=== PATIENT | male | born 1935 | race Caucasian/White ===

== ENCOUNTER 2020-10-18 22:57 | Inpatient (IN) | payer MEDICARE, OTHER ==
[~2020-10-18] VITALS: Ht 172.7 cm; Wt 81.6 kg
--- NOTE | 2020-10-18 23:30 | NUR ---
Patient BIB [facility] from home for c/o respiratory failure. According to EMS patient oxygen saturation was in the 80s when they arrived, and when placed on O2 15L via NC patient patients O2 saturation went to 89%. Patient appears in respiratory distress with use of accessory muscles, and has labored/dyspnea with exertion
[2020-10-18 23:44] LABS: ABG BASE EXCESS 2.9 mmol/L; ABG HCO3 25.4 mmol/L; ABG PH 7.505 (7.350-7.450); ABG SITE RIGHT RADIAL; ABG TOTAL HEMOGLOBIN 14.9 G/dL (13.5-18.0); COHb 1.7 % (0.5-1.5); MetHb 0.2 % (0.0-1.5); O2Hb 95.4 % (94.0-97.0); VENT MODE HVNI
[2020-10-18 23:46] LABS: BASOPHILS % (AUTO) 0.2 % (0.0-2.0); HEMOGLOBIN 14.7 g/dL (12.5-16.3); LYMPHOCYTES # (AUTO) 0.4 K/uL (20.0-40.0); LYMPHOCYTES % (AUTO) 11.2 % (20.5-51.5); MEAN CORPUSCULAR HEMOGLOBIN 29.7 uug (23.8-33.4); MEAN CORPUSCULAR HGB CONC 34 g/dL (32.5-36.3); MEAN CORPUSCULAR VOLUME 87.2 fL (73.0-96.2); MONOCYTES # (AUTO) 0.3 K/uL (2.0-10.0); MONOCYTES % (AUTO) 8.1 % (0.0-11.0); NEUTROPHILS % (AUTO) 80.5 % (38.5-71.5); PLATELET COUNT (AUTO) 148 K/uL (152-348); RED BLOOD CELL COUNT(AUTO) 4.93 MIL/uL (4.06-5.63); WHITE BLOOD COUNT (AUTO) 3.8 K/uL (3.6-10.2)
[2020-10-18 23:51] LABS: CARBON DIOXIDE 30 mmol/L (21-32); CHLORIDE 101 mmol/L (98-107); CREATININE 1.5 mg/dL (0.6-1.3); GLUCOSE 151 mg/dL (74-106); POTASSIUM 3.5 mmol/L (3.5-5.1); UREA NITROGEN, BLOOD 21 mg/dL (7-18)
[2020-10-19] MEDS ORDERED: TAMS-3 PO (00:24)
[2020-10-19 00:30] LABS: ALANINE AMINOTRANSFERASE 87 U/L (16-63); ALKALINE PHOSPHATASE 275 U/L (50-136); ASPARTATE AMINOTRANSFERASE 129 U/L (15-37); BILIRUBIN,TOTAL 1.1 mg/dL (0.2-1.0); FERRITIN 1490 ng/mL (26-388); LACTATE DEHYDROGENASE 576 U/L (85-227)
[2020-10-19] MEDS ORDERED: AZITHROMYCIN IV 500 MG in IV DEXTROSE 5% 250 ML IV ONE (00:30)
[2020-10-19] MEDS ORDERED: CEFTRIAXONE 1 G in IV DEXTROSE 5% 50 ML IV ONE (00:30)
[2020-10-19] MEDS ORDERED: FENO134C PO (00:34)
[2020-10-19] MEDS ORDERED: PIOG15TA8 PO (00:34)
[2020-10-19] MEDS ORDERED: DEXAMETHASONE SOD PHOSPHATE 4 MG INJ IV ONE (00:45)
[2020-10-19] MEDS ORDERED: AZITHROMYCIN 500 MG VIAL IV ONE (00:48)
[2020-10-19] MEDS ORDERED: DEXAMETHASONE SOD PHOSPHATE 10 MG INJ ONE ×2 (00:49→08:02)
[2020-10-19] MEDS ORDERED: CEFTRIAXONE 1 G VIAL ONE (00:49)
[2020-10-19] MEDS ORDERED: AZITHROMYCIN IV 500 MG in IV DEXTROSE 5% 250 ML IV SCH (02:45)
[2020-10-19] MEDS ORDERED: ALBUTEROL SULFATE 8 GM HFA.AER.AD IH PRN (02:45)
[2020-10-19] MEDS ORDERED: ONDANSETRON 4 MG/2 ML VIAL IV PRN (02:45)
[2020-10-19] MEDS ORDERED: CEFTRIAXONE 1 G in IV DEXTROSE 5% 50 ML IV SCH (02:45)
[2020-10-19] MEDS ORDERED: ACETAMINOPHEN 650 MG SUPP.RECT RC PRN (02:45)
[2020-10-19] MEDS ORDERED: ALBUTEROL SULFATE 2.5 MG/3 ML NEBU NEB ONE (03:00)
[2020-10-19] MEDS ORDERED: IPRATROPIUM BROMIDE 0.5 MG/2.5 ML NEBU NEB ONE (03:00)
[2020-10-19] MEDS ORDERED: IPRATROPIUM BROMIDE 0.5 MG/2.5 ML NEBU ONE (03:04)
[2020-10-19] MEDS ORDERED: ALBUTEROL SULFATE 2.5 MG/3 ML NEBU ONE (03:04)
[2020-10-19 03:53] LABS: CREATINE KINASE, TOTAL 250 U/L (39-308)
[2020-10-19] MEDS ORDERED: ENOXAPARIN SODIUM 40 MG/0.4 ML DISP.SYRIN SQ ONE (04:04)
--- NOTE | 2020-10-19 08:00 | NUR ---
Recieved patient from [facility] 3, noted be on Hi-gaudencio/vapotherm 02 at 40 Liters, with 100% fi02. Pt saturating at 93%. Pending floor admission
[2020-10-19] MEDS: DEXAMETHASONE SOD PHOSPHATE 4 MG INJ IV SCH (08:03)
[2020-10-19 10:12] LABS: BASOPHILS % (AUTO) 0.1 % (0.0-2.0); HEMATOCRIT 41.3 % (36.7-47.1); HEMOGLOBIN 14.1 g/dL (12.5-16.3); LYMPHOCYTES # (AUTO) 0.4 K/uL (20.0-40.0); LYMPHOCYTES % (AUTO) 10.3 % (20.5-51.5); MEAN CORPUSCULAR HGB CONC 34 g/dL (32.5-36.3); MEAN CORPUSCULAR VOLUME 87.5 fL (73.0-96.2); MONOCYTES # (AUTO) 0.2 K/uL (2.0-10.0); MONOCYTES % (AUTO) 4.6 % (0.0-11.0); NEUTROPHILS # (AUTO) 3.2 K/uL (1.8-8.9); PLATELET COUNT (AUTO) 159 K/uL (152-348); RED BLOOD CELL COUNT(AUTO) 4.71 MIL/uL (4.06-5.63); WHITE BLOOD COUNT (AUTO) 3.8 K/uL (3.6-10.2)
[2020-10-19 11:02] LABS: CREATININE 1.2 mg/dL (0.6-1.3); POTASSIUM 3.8 mmol/L (3.5-5.1)
[2020-10-19 11:18] LABS: BILIRUBIN,TOTAL 0.8 mg/dL (0.2-1.0); MAGNESIUM 2.2 mg/dL (1.8-2.4)
--- NOTE | 2020-10-19 12:00 | NUR ---
Pt remains on vapotherm, continuously reminded to keep on vapotherm cannula, pt removes it.
--- NOTE | 2020-10-19 16:00 | NUR ---
Patient remains in [facility]. Cont' on hi-flow 02 at 40L/min at 100% fi02. Pending CCU admission. Will cont' to monitor.
[2020-10-19] MEDS ORDERED: REMDESIVIR (CHARGED) 200 MG in IV NORMAL SALINE 210 ML IV ONE (19:00)
--- NOTE | 2020-10-19 19:13 | NUR ---
SBAR report given to Renny CLEMENT
--- NOTE | 2020-10-19 19:35 | NUR ---
Patient is awkae, alert on high flow 40L sating at 92%, will monitor.
--- NOTE | 2020-10-19 20:03 | NUR ---
Dr. Abbott at bedside.
--- NOTE | 2020-10-19 23:05 | NUR ---
Called lab regarding respiratory pathogen panel, stated we don't do that test here.
--- NOTE | 2020-10-19 23:12 | NUR ---
urine and flu swab collected.
[2020-10-19] MEDS ORDERED: CEFTRIAXONE /D5W 50ML IVPB **ER PYXIS IV ONE (23:18)
[2020-10-19] MEDS ORDERED: AZITHROMYCIN 500MG/ D5W 250ML IVPB **ER PYXIS ONLY IV ONE (23:18)
[2020-10-19] MEDS: CEFTRIAXONE 1 G in IV DEXTROSE 5% 50 ML IV SCH (23:22)
[2020-10-19 23:45] LABS: *BILIRUBIN,URIN NEGATIVE (NEGATIVE); *BLOOD, URINE 2+ (NEGATIVE); *COLOR,URINE YELLOW (YELLOW); *KETONES,URINE NEGATIVE (NEGATIVE); *UROBILINOGEN,URINE 0.2 E.U./dl (NORMAL); LEUKOCYTE ESTERASE ,URINE NEGATIVE (NEGATIVE); NITRITE, URINE POSITIVE (NEGATIVE); PH,URINE 5.5 (5.0-8.0); UGLUCOSE NEGATIVE (NEGATIVE)
[2020-10-19 23:50] LABS: *CLARITY,URINE HAZY (CLEAR)
[2020-10-20] MEDS: AZITHROMYCIN IV 500 MG in IV DEXTROSE 5% 250 ML IV SCH ×2 (00:12→23:00)
--- NOTE | 2020-10-20 01:00 | NUR ---
Informed Yaa Hancock CARDIOLOGY PHYSICIAN that O2 sat 88% on high flow, per Yaa ok as long as O2 sat is above 85%
[2020-10-20 01:14] LABS: BACTERIA,URINE MODERATE /HPF (NONE SEEN); SQUAMOUS EPITHELIAL CELL,UR FEW /HPF (NONE SEEN); WBC,URINE 0-3 /HPF (0-3); YEAST,URINE MANY /HPF (NONE SEEN)
--- NOTE | 2020-10-20 04:20 | NUR ---
Observed patient removing oxygen, reminded to keep oxygen on. will monitor.
--- NOTE | 2020-10-20 07:05 | NUR ---
Report given to URBANO Pierce.
--- NOTE | 2020-10-20 07:20 | NUR ---
recieved report from night RN, patients vital signs stable
--- NOTE | 2020-10-20 08:09 | NUR ---
patient removed high fow nasal cannula, oxygen dropped to 50%, patient moved back up in bed and oxygen placed back on, informed
--- NOTE | 2020-10-20 08:14 | NUR ---
oxygen increasing now at 77%, watching patient closely and informed MD
[2020-10-20] MEDS ORDERED: DEXAMETHASONE SOD PHOSPHATE 10 MG INJ ONE (08:40)
[2020-10-20] MEDS ORDERED: ENOXAPARIN SODIUM 60 MG/0.6 ML DISP.SYRIN SQ ONE (08:41)
[2020-10-20] MEDS: DEXAMETHASONE SOD PHOSPHATE 4 MG INJ IV SCH (08:42)
--- NOTE | 2020-10-20 08:52 | NUR ---
pt continues to get up in bed and take his oxygen off
[2020-10-20] MEDS: ENOXAPARIN SODIUM 40 MG/0.4 ML DISP.SYRIN SQ SCH (09:03)
[2020-10-20 10:10] LABS: BASOPHILS % (AUTO) 0.1 % (0.0-2.0); HEMATOCRIT 40.8 % (36.7-47.1); HEMOGLOBIN 13.8 g/dL (12.5-16.3); LYMPHOCYTES # (AUTO) 0.3 K/uL (20.0-40.0); LYMPHOCYTES % (AUTO) 4.6 % (20.5-51.5); MEAN CORPUSCULAR HEMOGLOBIN 29.8 uug (23.8-33.4); MEAN CORPUSCULAR HGB CONC 34 g/dL (32.5-36.3); MONOCYTES # (AUTO) 0.7 K/uL (2.0-10.0); NEUTROPHILS # (AUTO) 5.3 K/uL (1.8-8.9); NEUTROPHILS % (AUTO) 84.3 % (38.5-71.5); PLATELET COUNT (AUTO) 190 K/uL (152-348); RED BLOOD CELL COUNT(AUTO) 4.63 MIL/uL (4.06-5.63); WHITE BLOOD COUNT (AUTO) 6.3 K/uL (3.6-10.2)
[2020-10-20 10:45] LABS: BILIRUBIN,DIRECT 0.4 mg/dL (0.0-0.2); BILIRUBIN,TOTAL 0.6 mg/dL (0.2-1.0); CREATININE 1.2 mg/dL (0.6-1.3); TOTAL PROTEIN, SERUM 6.6 g/dL (6.4-8.2)
--- NOTE | 2020-10-20 10:45 | NUR ---
RT PT AT THIS TIME NOT TOLERATING VAPOTHERM 40LP 100% AND NRB 15LPM. PER MD ORDER PLACE PT ON BIPAP. PT AT THIS TIME WAS PLACE ON BIPAP SETTING OF IPAP 18 EPAP 8 RATE 18 FIO2 100%. PT SETTING REPEATED BACK TO ER MD AND WAS APPROVED OF SETTINGS. PT AT THIS TIME TOLERATING BIPAP AND MAINTAINING SPO2 >95%. MASK SECURED AND INTACT WITH MEPILEX WITH SMALL LEAK OF 11. ALARMS ON AND AUDIBLE RN AWARE WILL CONTINUE TO MONITOR PT.AMBU BAG AT BED SIDE. PT PENDING ADMISSION.
[2020-10-20] MEDS ORDERED: LORAZEPAM 2 MG/1 ML VIAL IV ONE (11:15)
--- NOTE | 2020-10-20 11:51 | NUR ---
family at bedside
--- NOTE | 2020-10-20 11:57 | NUR ---
[facility] states family wishes to keep patient a full code. [phone]
[2020-10-20] MEDS: REMDESIVIR (CHARGED)100 MG in IV NORMAL SALINE 250 ML IV SCH (18:03)
--- NOTE | 2020-10-20 19:15 | NUR ---
RECEIVED PATIENT AWAKE , UNCOOPERATIVE ON BIPAP 18 AT 100 FIO2% . JONES INTACT , IV D5 1/2 NS AT 75 RUNNING , JONES INTACT , NO FEVER NOTED
[2020-10-20 19:30] VITALS: BP 182/97
[2020-10-20 20:00] VITALS: BP 172/81
--- NOTE | 2020-10-20 20:30 | NUR ---
SPOKE TO GRAND DAUGHTER CIARAN , WHO IS SPOKE PERSON AND EMERGENCY CONTACT FOR THE FAMILY TO GIVE UNPDATE ONPATIENT'S CONDITION , GAVE CONSENT FOR PICC LINE AND CONVALESCENT PLASMA
[2020-10-20 21:00] VITALS: BP 169/84
[2020-10-20] MEDS: IV D5 1/2 NS 1000 ML 1,000 ML IV PRN (21:00)
[2020-10-20] MEDS ORDERED: hydrALAZINE HCL 20 MG/1 ML VIAL IV PRN (21:15)
[2020-10-20 22:00] VITALS: BP 160/87
--- NOTE | 2020-10-20 22:30 | NUR ---
PICC LINE INSERTED AT RIGHT UPPER ARM ,
[2020-10-20 23:00] VITALS: BP 168/84
[2020-10-20] MEDS ORDERED: AZITHROMYCIN 500 MG VIAL IV ONE (23:05)
--- NOTE | 2020-10-20 23:05 | NUR ---
CXR DONE TO CONFIRM PLACEMENT OF PICC LINE
[2020-10-20] MEDS ORDERED: CEFTRIAXONE /D5W 50ML IVPB **ER PYXIS IV ONE (23:06)
--- NOTE | 2020-10-20 23:30 | NUR ---
grand daughter called and notified of patient's behavior , keep taking off the bipap mask , pulling the tubing from the bipap , getting out be , despite numerous education and explanation of primary nurse and rt's , patient still tries to get out of bed , and still pulling tubes
--- NOTE | 2020-10-20 23:34 | NUR ---
waiting for the supervisor wrapping room to bring antibiotics
--- NOTE | 2020-10-20 23:45 | NUR ---
family called the patient on the cell phone , primary nurse handed the cell phone to the patient
[2020-10-20] MEDS: CEFTRIAXONE 1 G in IV DEXTROSE 5% 50 ML IV SCH (23:49)
[2020-10-21] VITALS (23 sets, daily range): BP systolic 117–182; BP diastolic 56–120
--- NOTE | 2020-10-21 01:47 | NUR ---
patient was tried to placed on high flow , unable to keep the patient for more than 10 minutes
[2020-10-21] MEDS: IV D5 1/2 NS 1000 ML 1,000 ML IV PRN ×2 (04:45→17:17)
[2020-10-21 05:36] LABS: BASOPHILS % (AUTO) 0.1 % (0.0-2.0); HEMATOCRIT 44.3 % (36.7-47.1); HEMOGLOBIN 15.1 g/dL (12.5-16.3); LYMPHOCYTES # (AUTO) 0.5 K/uL (20.0-40.0); LYMPHOCYTES % (AUTO) 8.5 % (20.5-51.5); MEAN CORPUSCULAR HEMOGLOBIN 29.9 uug (23.8-33.4); MEAN CORPUSCULAR HGB CONC 34 g/dL (32.5-36.3); MEAN CORPUSCULAR VOLUME 87.9 fL (73.0-96.2); MONOCYTES # (AUTO) 0.7 K/uL (2.0-10.0); MONOCYTES % (AUTO) 11.6 % (0.0-11.0); NEUTROPHILS # (AUTO) 4.7 K/uL (1.8-8.9); NEUTROPHILS % (AUTO) 79.8 % (38.5-71.5); PLATELET COUNT (AUTO) 239 K/uL (152-348); RED BLOOD CELL COUNT(AUTO) 5.04 MIL/uL (4.06-5.63); WHITE BLOOD COUNT (AUTO) 5.8 K/uL (3.6-10.2)
[2020-10-21 06:43] LABS: CARBON DIOXIDE 28 mmol/L (21-32); CHLORIDE 103 mmol/L (98-107); POTASSIUM 3.9 mmol/L (3.5-5.1)
[2020-10-21 06:44] LABS: ALANINE AMINOTRANSFERASE 90 U/L (16-63); ALKALINE PHOSPHATASE 272 U/L (50-136); ASPARTATE AMINOTRANSFERASE 105 U/L (15-37); BILIRUBIN,DIRECT 0.3 mg/dL (0.0-0.2); BILIRUBIN,TOTAL 0.7 mg/dL (0.2-1.0); CREATININE 1.3 mg/dL (0.6-1.3); GLUCOSE 168 mg/dL (74-106); LACTATE DEHYDROGENASE 736 U/L (85-227); UREA NITROGEN, BLOOD 32 mg/dL (7-18)
[2020-10-21 06:45] LABS: TOTAL PROTEIN, SERUM 7.3 g/dL (6.4-8.2)
[2020-10-21 07:24] LABS: FERRITIN 1317 ng/mL (26-388)
[2020-10-21] MEDS: DEXAMETHASONE SOD PHOSPHATE 4 MG INJ IV SCH (07:51)
[2020-10-21] MEDS: ENOXAPARIN SODIUM 40 MG/0.4 ML DISP.SYRIN SQ SCH (07:51)
[2020-10-21] MEDS ORDERED: AMLODIPINE 10 MG TABLET PO SCH (10:00)
--- NOTE | 2020-10-21 10:15 | NUR ---
DOCTOR DOUG IN THE UNIT TO SEE PATIENT. NEW ORDERS PLACED IN THE SYSTEM.
--- NOTE | 2020-10-21 16:24 | NUR ---
called lab still waiting for convalescent plasma to be ready. they will call when ready. patient has already been drawn for type and cross earlier today.
[2020-10-21] MEDS ORDERED: CEFTRIAXONE 1 G VIAL IV SCH (18:00)
[2020-10-21] MEDS: REMDESIVIR (CHARGED)100 MG in IV NORMAL SALINE 250 ML IV SCH (18:36)
--- NOTE | 2020-10-21 20:00 | NUR ---
PATIENT BECOMING RESTLESS. PATIENT WANTS TO GO HOME AND CALLING FAMILY TO GO HOME. PATIENT IS TAKING OFF HIGH FLOW AND NON-REBREATHER.
--- NOTE | 2020-10-21 23:30 | NUR ---
UNABLE TO RELEASE CONVALESCENT PLASMA DUE TO THE REQUIRED PAPERWORK BE SIGNED BY SIVAN FERNANDEZ (RICCI).
--- NOTE | 2020-10-21 23:38 | NUR ---
PATIENT PLACED ON BIPAP PER RT. PATIENT BECOMING MORE AGITATED NON- COMPLIANT AND RESTLESS. INFORMED VANE MUSE ORDERED ATIVAN PRN.
[2020-10-21] MEDS ORDERED: CEFTRIAXONE 500 MG VIAL ONE (23:44)
[2020-10-21] MEDS ORDERED: AZITHROMYCIN 500MG/ D5W 250ML IVPB **ER PYXIS ONLY IV ONE (23:44)
[2020-10-22] VITALS (47 sets, daily range): BP systolic 49–228; BP diastolic 31–134
[2020-10-22] MEDS: AZITHROMYCIN IV 500 MG in IV DEXTROSE 5% 250 ML IV SCH ×2 (00:05→23:11)
[2020-10-22] MEDS: LORAZEPAM 2 MG/1 ML VIAL IV PRN (00:33)
[2020-10-22] MEDS: CEFTRIAXONE 1 G in IV DEXTROSE 5% 50 ML IV SCH ×2 (00:33→22:31)
--- NOTE | 2020-10-22 01:30 | NUR ---
patient continues to take off bipap, noncompliant, rips off all lines and bipap patient quickly desaturates to the 60s. patient repeatedly placed on non-rebreather or bipap and removes after 5 minutes. patient's skin already dusky in color.
[2020-10-22] MEDS ORDERED: ROCURONIUM BROMIDE 50 MG/5 ML VIAL IV ONE (02:00)
[2020-10-22] MEDS ORDERED: ETOMIDATE 20 MG/10 ML VIAL IV ONE (02:00)
--- NOTE | 2020-10-22 02:14 | NUR ---
Pt intubated by ED MD with 7.5 ETT at approx. 21 cm and was subsequently placed on a Sam mechanical ventilator on ordered settings by TELECOMMUNICATOR; AC 24, VT 500, PEEP +8 and FIO2-100%. No resp. distress is noted at this time. Pt to be monitored throughout the duration of the shift and PRN SX. Sam alarm parameters have been checked and reset. ABG to be done.
--- NOTE | 2020-10-22 02:15 | NUR ---
patient intubated by dr milner from emergency department.
[2020-10-22] MEDS: PROPOFOL 100 ML IV PRN ×5 (02:31→20:58)
[2020-10-22] MEDS: MORPHINE SULFATE 2 MG/1 ML DISP.SYRIN IV PRN (02:47)
--- NOTE | 2020-10-22 03:10 | NUR ---
decreased fi02 to 75% per dr cline orders and placed order for abg at 0800.
[2020-10-22 03:15] LABS: ABG BASE EXCESS -3.9 mmol/L; ABG HCO3 23.1 mmol/L; ABG PCO2 49.7 mmHg (35.0-45.0); ABG PH 7.286 (7.350-7.450); ABG PO2 147.8 mmHg (75.0-100.0); ABG SITE RIGHT RADIAL; ABG TOTAL HEMOGLOBIN 14.9 G/dL (13.5-18.0); COHb 0.9 % (0.5-1.5); MetHb 0.3 % (0.0-1.5); O2Hb 97.7 % (94.0-97.0); VENT MODE VENT - A/C; VT, ABG 500 mL
[2020-10-22] MEDS ORDERED: NOREPINEPHRINE BITARTRATE 4 MG/4 ML VIAL IV ONE (05:11)
[2020-10-22 05:20] LABS: BASOPHILS % (AUTO) 0.1 % (0.0-2.0); HEMATOCRIT 38.2 % (36.7-47.1); HEMOGLOBIN 12.9 g/dL (12.5-16.3); LYMPHOCYTES # (AUTO) 0.2 K/uL (20.0-40.0); LYMPHOCYTES % (AUTO) 1.9 % (20.5-51.5); MEAN CORPUSCULAR HEMOGLOBIN 29.9 uug (23.8-33.4); MEAN CORPUSCULAR HGB CONC 34 g/dL (32.5-36.3); MEAN CORPUSCULAR VOLUME 88.5 fL (73.0-96.2); MONOCYTES # (AUTO) 0.8 K/uL (2.0-10.0); MONOCYTES % (AUTO) 9.1 % (0.0-11.0); NEUTROPHILS # (AUTO) 7.6 K/uL (1.8-8.9); NEUTROPHILS % (AUTO) 88.9 % (38.5-71.5); PLATELET COUNT (AUTO) 221 K/uL (152-348); RED BLOOD CELL COUNT(AUTO) 4.32 MIL/uL (4.06-5.63); WHITE BLOOD COUNT (AUTO) 8.5 K/uL (3.6-10.2)
[2020-10-22 05:36] LABS: BILIRUBIN,DIRECT 0.4 mg/dL (0.0-0.2); BILIRUBIN,TOTAL 0.7 mg/dL (0.2-1.0); CREATININE 1.2 mg/dL (0.6-1.3); POTASSIUM 3.5 mmol/L (3.5-5.1)
--- NOTE | 2020-10-22 07:35 | NUR ---
called lab again to get correct physician to sign convalescent plasma forms. Forms that were given are not being utilized anymore and there is a new form/ checklist that requires physicians signature.
[2020-10-22 08:21] LABS: ABG BASE EXCESS -3.6 mmol/L; ABG HCO3 21.6 mmol/L; ABG PCO2 39.7 mmHg (35.0-45.0); ABG PH 7.353 (7.350-7.450); ABG PO2 76.4 mmHg (75.0-100.0); ABG SITE RIGHT RADIAL; COHb 1.4 % (0.5-1.5); MetHb 0.1 % (0.0-1.5); O2Hb 92.9 % (94.0-97.0); VENT MODE VENT - A/C
[2020-10-22] MEDS ORDERED: FENOFIBRATE NANOCRYSTALLIZED 145 MG TABLET PO SCH (09:00)
[2020-10-22] MEDS: PIOGLITAZONE HCL 15 MG TABLET PO SCH (09:00)
[2020-10-22] MEDS: TAMSULOSIN HCL 0.4 MG CAP.SR.24H PO SCH (09:00)
[2020-10-22] MEDS ORDERED: AMLODIPINE 10 MG TABLET PO SCH (09:00)
--- NOTE | 2020-10-22 09:09 | NUR ---
Unable to administer AM oral PO meds. No NG-tube present. Will ask MD for NG-tube insertion.
[2020-10-22] MEDS: IV D5 1/2 NS 1000 ML 1,000 ML IV PRN (09:13)
[2020-10-22] MEDS: ENOXAPARIN SODIUM 40 MG/0.4 ML DISP.SYRIN SQ SCH (09:19)
[2020-10-22] MEDS: DEXAMETHASONE SOD PHOSPHATE 4 MG INJ IV SCH (09:34)
[2020-10-22] MEDS: NOREPINEPHRINE BITARTRATE 8 MG in IV NORMAL SALINE 242 ML IV PRN ×2 (10:54→20:20)
--- NOTE | 2020-10-22 13:59 | NUR ---
Dr. Coleman here to see pt. Full report given. signed consent for blood for convalescent plasma transfusion.
--- NOTE | 2020-10-22 15:00 | NUR ---
Dr. Abbott here to see pt. Full report given. New orders received.
--- NOTE | 2020-10-22 15:51 | NUR ---
Convalescent plasma transfusion started. Will closely monitor pt for first 15min for any adverse reactions. Unable to scan and register product number from convalescent plasma bag. Blood bank aware and notified that I will document on paper form. See "Blood Transfusion Record" form in chart for documentation.
--- NOTE | 2020-10-22 16:06 | NUR ---
Pt tolerating convalescent plasma. No adverse reactions noted from the pt. Will continue to monitor. See "Blood Transfusion Record" paper for documentation.
--- NOTE | 2020-10-22 16:37 | NUR ---
Convalescent plasma completed. Pt tolerated transfusion well and no adverse reactions noted. VSS wnl.
[2020-10-22] MEDS: REMDESIVIR (CHARGED)100 MG in IV NORMAL SALINE 250 ML IV SCH (18:58)
--- NOTE | 2020-10-22 19:30 | NUR ---
Report received. Patient on isolation for COVID, orally intubated with same settings. On continuous Diprivan drip at 50 mcg/kg/ min. Assessment done; see flow sheet for complete data.
[2020-10-23] VITALS (56 sets, daily range): BP systolic 70–158; BP diastolic 40–76
[2020-10-23] MEDS: PROPOFOL 100 ML IV PRN ×6 (01:37→22:16)
[2020-10-23] MEDS: IV D5 1/2 NS 1000 ML 1,000 ML IV PRN ×2 (02:28→17:29)
--- NOTE | 2020-10-23 02:45 | NUR ---
Attempted to dc Levophed drip; patient became hypotensive. Drip restarted.
[2020-10-23] MEDS: MORPHINE SULFATE 2 MG/1 ML DISP.SYRIN IV PRN ×2 (04:59→14:53)
--- NOTE | 2020-10-23 05:00 | NUR ---
Tachypneic RR in the 30's; medicated with Morphine IV. Will monitor closely.
[2020-10-23 05:32] LABS: HEMATOCRIT 38.4 % (36.7-47.1); HEMOGLOBIN 13.1 g/dL (12.5-16.3); LYMPHOCYTES # (AUTO) 0.3 K/uL (20.0-40.0); LYMPHOCYTES % (AUTO) 2.9 % (20.5-51.5); MEAN CORPUSCULAR HGB CONC 34 g/dL (32.5-36.3); MEAN CORPUSCULAR VOLUME 87.8 fL (73.0-96.2); MONOCYTES # (AUTO) 0.7 K/uL (2.0-10.0); MONOCYTES % (AUTO) 7.3 % (0.0-11.0); NEUTROPHILS # (AUTO) 8.6 K/uL (1.8-8.9); NEUTROPHILS % (AUTO) 89.8 % (38.5-71.5); PLATELET COUNT (AUTO) 196 K/uL (152-348); RED BLOOD CELL COUNT(AUTO) 4.37 MIL/uL (4.06-5.63); WHITE BLOOD COUNT (AUTO) 9.6 K/uL (3.6-10.2)
[2020-10-23 05:47] LABS: BILIRUBIN,DIRECT 0.3 mg/dL (0.0-0.2); BILIRUBIN,TOTAL 0.6 mg/dL (0.2-1.0); CREATININE 1.2 mg/dL (0.6-1.3); MAGNESIUM 2.3 mg/dL (1.8-2.4); POTASSIUM 3.5 mmol/L (3.5-5.1); TOTAL PROTEIN, SERUM 5.8 g/dL (6.4-8.2)
[2020-10-23] MEDS: LORAZEPAM 2 MG/1 ML VIAL IV PRN (05:57)
--- NOTE | 2020-10-23 06:00 | NUR ---
Remains tachypneic, saturation in the 80's-low 90's. RT at bedside. Suctioned. FIO2 increased to 100%. Medicated with Ativan IV. Diprivan drip remains at 50 mcg/kg/min.
[2020-10-23] MEDS: POTASSIUM CHLORIDE 50 ML IV SCH ×2 (07:37→08:33)
[2020-10-23] MEDS: TAMSULOSIN HCL 0.4 MG CAP.SR.24H PO SCH (08:29)
[2020-10-23] MEDS: DEXAMETHASONE SOD PHOSPHATE 4 MG INJ IV SCH (08:29)
[2020-10-23] MEDS: PIOGLITAZONE HCL 15 MG TABLET PO SCH (08:30)
[2020-10-23] MEDS: ENOXAPARIN SODIUM 40 MG/0.4 ML DISP.SYRIN SQ SCH (08:30)
--- NOTE | 2020-10-23 08:30 | NUR ---
SEDATION VACATION DONE,PT. DID NOT TOLERATED, BECAME TACHYPNEIC,ALARMING ON VENT.DIPRIVAN RESTARTED.
[2020-10-23 09:14] LABS: ABG BASE EXCESS -0.7 mmol/L; ABG HCO3 24.1 mmol/L; ABG PCO2 40.4 mmHg (35.0-45.0); ABG PH 7.393 (7.350-7.450); ABG PO2 67.1 mmHg (75.0-100.0); ABG SITE RIGHT RADIAL; ABG TOTAL HEMOGLOBIN 13.7 G/dL (13.5-18.0); COHb 0.9 % (0.5-1.5); MetHb 0.2 % (0.0-1.5); O2Hb 91.8 % (94.0-97.0); VENT MODE VENT - A/C; VT, ABG 500 mL
--- NOTE | 2020-10-23 11:10 | NUR ---
PT.WAS SEEN BY VANE MUSE NP
--- NOTE | 2020-10-23 11:54 | NUR ---
PT.WAS SEEN BY MANDY FELDER MD WITH NEW ORDERS.
--- NOTE | 2020-10-23 14:42 | NUR ---
PER NURSING [id number] CONSULTANT PRONING PT.NOT AVAILABLE .NO TEAM OR PROTECTION PILLOWS AVAILABLE. WAS NOTIFIED.
--- NOTE | 2020-10-23 15:58 | NUR ---
PT.WAS SEEN BY LACEY WHITTAKER NP
[2020-10-23] MEDS ORDERED: VITAL AF 1.2 1,000 ML LIQUID NG PRN (16:30)
[2020-10-23] MEDS: REMDESIVIR (CHARGED)100 MG in IV NORMAL SALINE 250 ML IV SCH (18:05)
--- NOTE | 2020-10-23 18:30 | NUR ---
NO CHANGES IN PT.CONDITION,NO S/S OF ACUTE DISTRESS.
--- NOTE | 2020-10-23 19:10 | NUR ---
receive patient sedated , vent setting of ac 24 500 tv p 12 fio2 90 % . ogt of vital af , 30 ml , lane , diprivan at 50 mcg , d51/2 ns 75 ml , picc line intact and lane intact
[2020-10-23] MEDS: AZITHROMYCIN IV 500 MG in IV DEXTROSE 5% 250 ML IV SCH (22:22)
[2020-10-23] MEDS: CEFTRIAXONE 1 G in IV DEXTROSE 5% 50 ML IV SCH (22:23)
[2020-10-24] VITALS (84 sets, daily range): BP systolic 75–163; BP diastolic 44–89
[2020-10-24] MEDS ORDERED: NOREPINEPHRINE BITARTRATE 4 MG/4 ML VIAL IV ONE (01:05)
[2020-10-24] MEDS: NOREPINEPHRINE BITARTRATE 8 MG in IV NORMAL SALINE 242 ML IV PRN ×2 (01:06→09:30)
[2020-10-24] MEDS: PROPOFOL 100 ML IV PRN ×6 (02:22→20:17)
--- NOTE | 2020-10-24 06:30 | NUR ---
patient is calm sedated at 50 mcgof diprivan , vent settings are the same , ogt at 30 ml , placement and residual checked , lane intact
--- NOTE | 2020-10-24 07:30 | NUR ---
Received patient in bed, ETT size 7.5 in placed, 22 lipline. NGT in placed at 30ml/hr. Kept HOB elevated. Patient is connected to mechanical ventilator with Settings AC 24 VT 500 PEEP +12 FiO2 70%. Patient is sedated on Propofol at 50mcg/kg/min. On Levophed at 0.1 mcg/kg/min.
[2020-10-24] MEDS: PIOGLITAZONE HCL 15 MG TABLET PO SCH (08:07)
[2020-10-24] MEDS: TAMSULOSIN HCL 0.4 MG CAP.SR.24H PO SCH (08:07)
[2020-10-24] MEDS: DEXAMETHASONE SOD PHOSPHATE 4 MG INJ IV SCH (08:07)
[2020-10-24 08:08] LABS: BASOPHILS % (AUTO) 0.2 % (0.0-2.0); HEMOGLOBIN 14.2 g/dL (12.5-16.3); LYMPHOCYTES # (AUTO) 0.3 K/uL (20.0-40.0); LYMPHOCYTES % (AUTO) 3.4 % (20.5-51.5); MEAN CORPUSCULAR HEMOGLOBIN 29.9 uug (23.8-33.4); MEAN CORPUSCULAR HGB CONC 34 g/dL (32.5-36.3); MEAN CORPUSCULAR VOLUME 88.8 fL (73.0-96.2); MONOCYTES # (AUTO) 0.5 K/uL (2.0-10.0); MONOCYTES % (AUTO) 4.7 % (0.0-11.0); NEUTROPHILS # (AUTO) 9.4 K/uL (1.8-8.9); NEUTROPHILS % (AUTO) 91.7 % (38.5-71.5); PLATELET COUNT (AUTO) 174 K/uL (152-348); RED BLOOD CELL COUNT(AUTO) 4.74 MIL/uL (4.06-5.63); WHITE BLOOD COUNT (AUTO) 10.3 K/uL (3.6-10.2)
[2020-10-24 08:09] LABS: ABG BASE EXCESS -1.9 mmol/L; ABG HCO3 25.2 mmol/L; ABG PCO2 52.2 mmHg (35.0-45.0); ABG PH 7.302 (7.350-7.450); ABG PO2 83.3 mmHg (75.0-100.0); ABG SITE RIGHT RADIAL; ABG TOTAL HEMOGLOBIN 14.3 G/dL (13.5-18.0); COHb 1.1 % (0.5-1.5); MetHb 0.3 % (0.0-1.5); O2Hb 94.6 % (94.0-97.0); VENT MODE VENT - A/C; VT, ABG 500 mL
[2020-10-24] MEDS: ENOXAPARIN SODIUM 40 MG/0.4 ML DISP.SYRIN SQ SCH (08:26)
[2020-10-24 08:33] LABS: BILIRUBIN,DIRECT 0.4 mg/dL (0.0-0.2); BILIRUBIN,TOTAL 0.7 mg/dL (0.2-1.0); CREATININE 1.2 mg/dL (0.6-1.3); MAGNESIUM 2.2 mg/dL (1.8-2.4); PHOSPHOROUS 2.6 mg/dL (2.5-4.9); POTASSIUM 3.9 mmol/L (3.5-5.1)
[2020-10-24] MEDS: IV D5 1/2 NS 1000 ML 1,000 ML IV PRN ×2 (09:19→23:35)
--- NOTE | 2020-10-24 11:07 | NUR ---
Seen and examined by Roxana BENAVIDEZ with New Orders Received.
--- NOTE | 2020-10-24 11:30 | NUR ---
Seen and examined by George GOMEZ
--- NOTE | 2020-10-24 18:00 | NUR ---
Seen and examined by Dr. byrne.
--- NOTE | 2020-10-24 19:00 | NUR ---
patient in bed, sedated, ON ETT 7.5 at 22lipline coonected to ventilator, AC 24 VT 500 PEEP 12 Fio2 70%. No signs of distress noted. Remains on Propofol at 60mcg/kg/min and Levo at 0.08 mcg/kg/min. Will endorse to Oncoming Nurse.
[2020-10-24] MEDS: CEFTRIAXONE 1 G in IV DEXTROSE 5% 50 ML IV SCH (22:04)
[2020-10-25] VITALS (76 sets, daily range): BP systolic 85–167; BP diastolic 44–78
[2020-10-25] MEDS: PROPOFOL 100 ML IV PRN ×5 (00:59→20:50)
[2020-10-25] MEDS: ACETAMINOPHEN 325 MG TABLET NG PRN ×2 (08:00→18:17)
[2020-10-25] MEDS: ENOXAPARIN SODIUM 40 MG/0.4 ML DISP.SYRIN SQ SCH (08:20)
[2020-10-25] MEDS: DEXAMETHASONE SOD PHOSPHATE 4 MG INJ IV SCH (08:21)
[2020-10-25] MEDS: TAMSULOSIN HCL 0.4 MG CAP.SR.24H PO SCH (08:21)
[2020-10-25] MEDS: PIOGLITAZONE HCL 15 MG TABLET NG SCH (08:22)
[2020-10-25 08:33] LABS: ABG BASE EXCESS -4.3 mmol/L; ABG HCO3 25.2 mmol/L; ABG PCO2 66.6 mmHg (35.0-45.0); ABG PH 7.195 (7.350-7.450); ABG PO2 99.6 mmHg (75.0-100.0); ABG SITE RIGHT RADIAL; COHb 1.3 % (0.5-1.5); MetHb 0.2 % (0.0-1.5); VENT MODE VENT - A/C; VT, ABG 500 mL
[2020-10-25 10:31] LABS: ALANINE AMINOTRANSFERASE 51 U/L (16-63); ALKALINE PHOSPHATASE 210 U/L (50-136); ASPARTATE AMINOTRANSFERASE 45 U/L (15-37); BILIRUBIN,TOTAL 0.6 mg/dL (0.2-1.0); CARBON DIOXIDE 26 mmol/L (21-32); CHLORIDE 108 mmol/L (98-107); CREATININE 1.4 mg/dL (0.6-1.3); MAGNESIUM 2.3 mg/dL (1.8-2.4); PHOSPHOROUS 3.8 mg/dL (2.5-4.9); POTASSIUM 4.4 mmol/L (3.5-5.1); TOTAL PROTEIN, SERUM 5.2 g/dL (6.4-8.2); UREA NITROGEN, BLOOD 41 mg/dL (7-18)
[2020-10-25 10:34] LABS: BASOPHILS # (AUTO) 0.1 K/uL (0.0-8.0); BASOPHILS % (AUTO) 0.8 % (0.0-2.0); EOSINOPHILS % (AUTO) 0.1 % (0.0-7.0); HEMATOCRIT 40.3 % (36.7-47.1); HEMOGLOBIN 13.2 g/dL (12.5-16.3); LYMPHOCYTES # (AUTO) 0.2 K/uL (20.0-40.0); LYMPHOCYTES % (AUTO) 1.5 % (20.5-51.5); MEAN CORPUSCULAR HEMOGLOBIN 29.5 uug (23.8-33.4); MEAN CORPUSCULAR HGB CONC 33 g/dL (32.5-36.3); MEAN CORPUSCULAR VOLUME 90.2 fL (73.0-96.2); MONOCYTES # (AUTO) 0.7 K/uL (2.0-10.0); MONOCYTES % (AUTO) 7.2 % (0.0-11.0); NEUTROPHILS # (AUTO) 9.4 K/uL (1.8-8.9); NEUTROPHILS % (AUTO) 90.4 % (38.5-71.5); PLATELET COUNT (AUTO) 147 K/uL (152-348); RED BLOOD CELL COUNT(AUTO) 4.47 MIL/uL (4.06-5.63); WHITE BLOOD COUNT (AUTO) 10.4 K/uL (3.6-10.2)
[2020-10-25 10:38] LABS: GLUCOSE 323 mg/dL (74-106)
[2020-10-25] MEDS: IV D5 1/2 NS 1000 ML 1,000 ML IV PRN (11:55)
[2020-10-25] MEDS: NOREPINEPHRINE BITARTRATE 8 MG in IV NORMAL SALINE 242 ML IV PRN (11:56)
[2020-10-25 15:13] LABS: ABG BASE EXCESS -3.4 mmol/L; ABG PCO2 76.9 mmHg (35.0-45.0); ABG PH 7.164 (7.350-7.450); ABG PO2 93.7 mmHg (75.0-100.0); ABG SITE RIGHT RADIAL; ABG TOTAL HEMOGLOBIN 13.6 G/dL (13.5-18.0); COHb 1.3 % (0.5-1.5); MetHb 0.2 % (0.0-1.5); O2Hb 95.4 % (94.0-97.0); VENT MODE VENT - A/C; VT, ABG 400 mL
[2020-10-25] MEDS ORDERED: FUROSEMIDE 20 MG/2 ML VIAL IV ONE (17:30)
[2020-10-25] MEDS: CEFTRIAXONE 1 G in IV DEXTROSE 5% 50 ML IV SCH (23:20)
[2020-10-25 23:33] LABS: *BLOOD, URINE 3+ (NEGATIVE); *CLARITY,URINE CLOUDY (CLEAR); *COLOR,URINE Brown (YELLOW); *KETONES,URINE 1+ (NEGATIVE); LEUKOCYTE ESTERASE ,URINE 3+ (NEGATIVE); NITRITE, URINE NEGATIVE (NEGATIVE); PH,URINE 5.5 (5.0-8.0); UGLUCOSE NEGATIVE (NEGATIVE)
[2020-10-25 23:53] LABS: *BILIRUBIN,URIN 3+ (NEGATIVE)
[2020-10-26] VITALS (36 sets, daily range): BP systolic 90–127; BP diastolic 46–60
[2020-10-26] MEDS: PROPOFOL 100 ML IV PRN ×6 (00:42→21:55)
[2020-10-26 01:24] LABS: BACTERIA,URINE MANY /HPF (NONE SEEN); RBC,URINE 80-100 /HPF (0-3)
[2020-10-26 01:25] LABS: SQUAMOUS EPITHELIAL CELL,UR FEW /HPF (NONE SEEN); URINE AMORPHOUS URATE MANY /HPF; YEAST,URINE BUDDING YEAST /HPF (NONE SEEN)
[2020-10-26] MEDS: IV D5 1/2 NS 1000 ML 1,000 ML IV PRN ×2 (02:31→16:05)
[2020-10-26 06:14] LABS: BASOPHILS # (AUTO) 0.1 K/uL (0.0-8.0); BASOPHILS % (AUTO) 0.5 % (0.0-2.0); HEMATOCRIT 39.5 % (36.7-47.1); HEMOGLOBIN 12.5 g/dL (12.5-16.3); LYMPHOCYTES # (AUTO) 0.2 K/uL (20.0-40.0); LYMPHOCYTES % (AUTO) 1.8 % (20.5-51.5); MEAN CORPUSCULAR HEMOGLOBIN 29.2 uug (23.8-33.4); MEAN CORPUSCULAR HGB CONC 32 g/dL (32.5-36.3); MEAN CORPUSCULAR VOLUME 92.1 fL (73.0-96.2); MONOCYTES # (AUTO) 0.8 K/uL (2.0-10.0); MONOCYTES % (AUTO) 6.6 % (0.0-11.0); NEUTROPHILS # (AUTO) 11.4 K/uL (1.8-8.9); NEUTROPHILS % (AUTO) 91.1 % (38.5-71.5); PLATELET COUNT (AUTO) 164 K/uL (152-348); RED BLOOD CELL COUNT(AUTO) 4.29 MIL/uL (4.06-5.63); WHITE BLOOD COUNT (AUTO) 12.6 K/uL (3.6-10.2)
[2020-10-26 07:18] LABS: CHLORIDE 102 mmol/L (98-107); POTASSIUM 5.5 mmol/L (3.5-5.1)
[2020-10-26 07:50] LABS: CARBON DIOXIDE 25 mmol/L (21-32)
[2020-10-26 07:51] LABS: MAGNESIUM 2.8 mg/dL (1.8-2.4); PHOSPHOROUS 6.9 mg/dL (2.5-4.9); UREA NITROGEN, BLOOD 67 mg/dL (7-18)
[2020-10-26 08:10] LABS: GLUCOSE 393 mg/dL (74-106)
[2020-10-26 08:20] LABS: ABG BASE EXCESS -5.1 mmol/L; ABG HCO3 27.9 mmol/L; ABG PCO2 101.9 mmHg (35.0-45.0); ABG PH 7.055 (7.350-7.450); ABG PO2 65.2 mmHg (75.0-100.0); ABG SITE LEFT RADIAL; ABG TOTAL HEMOGLOBIN 13.6 G/dL (13.5-18.0); COHb 1.6 % (0.5-1.5); MetHb 0.2 % (0.0-1.5); O2Hb 89.9 % (94.0-97.0); VENT MODE VENT - A/C; VT, ABG 400 mL
[2020-10-26] MEDS ORDERED: DEXTROSE 50% 50 ML DISP.SYRIN IV PRN (08:30)
[2020-10-26] MEDS: ENOXAPARIN SODIUM 40 MG/0.4 ML DISP.SYRIN SQ SCH (09:00)
[2020-10-26] MEDS: DEXAMETHASONE SOD PHOSPHATE 4 MG INJ IV SCH (09:00)
[2020-10-26] MEDS: PIOGLITAZONE HCL 15 MG TABLET NG SCH (09:01)
[2020-10-26] MEDS: TAMSULOSIN HCL 0.4 MG CAP.SR.24H PO SCH (09:01)
[2020-10-26] MEDS: BLOOD SUGAR DIAGNOSTIC 1 EACH STRIP VI SCH ×4 (09:12→23:37)
[2020-10-26] MEDS: INSULIN REGULAR, HUMAN 300 UNIT/3 ML VIAL SQ PRN ×3 (09:40→23:37)
[2020-10-26 15:09] LABS: ABG BASE EXCESS -8.3 mmol/L; ABG PCO2 69.2 mmHg (35.0-45.0); ABG PO2 65.8 mmHg (75.0-100.0); ABG SITE LEFT RADIAL; ABG TOTAL HEMOGLOBIN 12.9 G/dL (13.5-18.0); COHb 1.3 % (0.5-1.5); MetHb 0.3 % (0.0-1.5); O2Hb 90.8 % (94.0-97.0); VENT MODE VENT - A/C; VT, ABG 500 mL
[2020-10-26] MEDS: MORPHINE SULFATE 2 MG/1 ML DISP.SYRIN IV PRN (20:47)
[2020-10-26] MEDS: CEFTRIAXONE 1 G in IV DEXTROSE 5% 50 ML IV SCH (23:07)
[2020-10-26] MEDS ORDERED: IV 1/2NS 1000 ML 1,000 ML IV PRN (23:30)
--- NOTE | 2020-10-26 23:30 | NUR ---
Spoke to Roxana Mosqueda re: [id number]; orders received. Reg Insulin coverage given and IV changed to 1/2 NS.
[2020-10-27] VITALS (58 sets, daily range): BP systolic 67–112; BP diastolic 33–49
[2020-10-27] MEDS: PROPOFOL 100 ML IV PRN ×7 (00:13→23:08)
[2020-10-27 05:05] LABS: BASOPHILS # (AUTO) 0.1 K/uL (0.0-8.0); BASOPHILS % (AUTO) 0.6 % (0.0-2.0); HEMATOCRIT 36.2 % (36.7-47.1); HEMOGLOBIN 11.5 g/dL (12.5-16.3); LYMPHOCYTES # (AUTO) 0.3 K/uL (20.0-40.0); LYMPHOCYTES % (AUTO) 1.5 % (20.5-51.5); MEAN CORPUSCULAR HEMOGLOBIN 29.3 uug (23.8-33.4); MEAN CORPUSCULAR HGB CONC 32 g/dL (32.5-36.3); MEAN CORPUSCULAR VOLUME 92.2 fL (73.0-96.2); MONOCYTES # (AUTO) 1.7 K/uL (2.0-10.0); MONOCYTES % (AUTO) 9.2 % (0.0-11.0); NEUTROPHILS # (AUTO) 16.2 K/uL (1.8-8.9); NEUTROPHILS % (AUTO) 88.7 % (38.5-71.5); PLATELET COUNT (AUTO) 217 K/uL (152-348); RED BLOOD CELL COUNT(AUTO) 3.92 MIL/uL (4.06-5.63); WHITE BLOOD COUNT (AUTO) 18.3 K/uL (3.6-10.2)
[2020-10-27 05:47] LABS: ALANINE AMINOTRANSFERASE 39 U/L (16-63); ALKALINE PHOSPHATASE 173 U/L (50-136); ASPARTATE AMINOTRANSFERASE 25 U/L (15-37); BILIRUBIN,DIRECT 0.9 mg/dL (0.0-0.2); BILIRUBIN,TOTAL 1.1 mg/dL (0.2-1.0); CARBON DIOXIDE 22 mmol/L (21-32); CHLORIDE 98 mmol/L (98-107); CREATININE 5.1 mg/dL (0.6-1.3); FERRITIN 954 ng/mL (26-388); LACTATE DEHYDROGENASE 311 U/L (85-227); MAGNESIUM 3.4 mg/dL (1.8-2.4); PHOSPHOROUS 7.4 mg/dL (2.5-4.9); TOTAL PROTEIN, SERUM 5.4 g/dL (6.4-8.2)
[2020-10-27 05:57] LABS: GLUCOSE 480 mg/dL (74-106); POTASSIUM 6.3 mmol/L (3.5-5.1); UREA NITROGEN, BLOOD 104 mg/dL (7-18)
[2020-10-27] MEDS: BLOOD SUGAR DIAGNOSTIC 1 EACH STRIP VI SCH ×3 (06:09→18:19)
[2020-10-27] MEDS: INSULIN REGULAR, HUMAN 300 UNIT/3 ML VIAL SQ PRN ×3 (06:10→18:09)
--- NOTE | 2020-10-27 06:45 | NUR ---
Spoke to Dr. Mondragon re: abnormal and high glucose. Aware of patient's condition. No orders.
[2020-10-27] MEDS ORDERED: FUROSEMIDE 40 MG/4 ML VIAL IV ONE (07:45)
[2020-10-27] MEDS ORDERED: CALCIUM CHLORIDE 1 GM/10 ML DISP.SYRIN IVP ONE (07:45)
[2020-10-27] MEDS ORDERED: SODIUM POLYSTYRENE SULFONATE 15 G/60 ML LIQUID UDC PO ONE (07:45)
[2020-10-27] MEDS ORDERED: SODIUM BICARBONATE 8.4% 50 MEQ/50 ML DISP.SYRIN IV ONE (07:45)
[2020-10-27] MEDS ORDERED: INSULIN REGULAR, HUMAN 300 UNIT/3 ML VIAL IV ONE (07:45)
[2020-10-27 08:13] LABS: ABG BASE EXCESS -13.2 mmol/L; ABG HCO3 19.6 mmol/L; ABG PCO2 85.2 mmHg (35.0-45.0); ABG PH 6.979 (7.350-7.450); ABG PO2 73.8 mmHg (75.0-100.0); ABG SITE LEFT RADIAL; ABG TOTAL HEMOGLOBIN 12.5 G/dL (13.5-18.0); COHb 2.2 % (0.5-1.5); MetHb 0.4 % (0.0-1.5); O2Hb 91.2 % (94.0-97.0); VENT MODE VENT - A/C 28; VT, ABG 500 mL
[2020-10-27] MEDS: DEXAMETHASONE SOD PHOSPHATE 4 MG INJ IV SCH (08:16)
[2020-10-27] MEDS: TAMSULOSIN HCL 0.4 MG CAP.SR.24H PO SCH (08:17)
[2020-10-27] MEDS: PIOGLITAZONE HCL 15 MG TABLET NG SCH (08:17)
[2020-10-27] MEDS ORDERED: INSULIN REGULAR, HUMAN 300 UNIT/3 ML VIAL SQ ONE (10:15)
[2020-10-27] MEDS: NOREPINEPHRINE BITARTRATE 8 MG in IV NORMAL SALINE 242 ML IV PRN ×2 (10:30→19:50)
--- NOTE | 2020-10-27 12:28 | NUR ---
doctor fernando in the unit to see the patient
--- NOTE | 2020-10-27 14:43 | NUR ---
primary has been in communication with family regarding prognosis of patient and will talk to the rest of family and get back to us. They do want dialysis. Per nephrology dialysis placement to be done by keren fitzpatrick later today.
--- NOTE | 2020-10-27 16:51 | NUR ---
Business Leader Consultation: Lehr Attendant received a consultation for comfort measures. Patient is an 85 year old male, COVID-19 positive, on a ventilator, unable to communicate. SW called patient's granddaughter Dee [phone]. Dee was available to speak with this SW, cooperative and pleasant. SW inquired about patient's family's wishes for patient's level of treatment. Dee stated that she is aware of patient's prognosis and multiple medical problems, however Dee stated that she and the family want to try and see if patient will improve. Dee stated that she recently gave authorization for dialysis. SW acknowledged Dee's wishes, and stated that SW would relay them to patient's attending physician, Dr. Massimo Basilio. Dee expressed agreement. SW then consulted with Dr. Massimo Basilio regarding family's wishes. Will continue to monitor patient's needs, and communicate with family. SW to remain available, as needed.
[2020-10-27] MEDS: MEROPENEM 500 MG in IV NORMAL SALINE 50 ML IV SCH (18:24)
--- NOTE | 2020-10-27 19:30 | NUR ---
Report received. Patient COVID +, orally intubated and to mechanical ventilator and continuous sedated with Diprivan drip via TARIQ PICC line. Assessment done. For dialysis tonight.
[2020-10-27] MEDS ORDERED: VANCOMYCIN IV 500 MG in IV DEXTROSE 5% 100 ML IV SCH (20:00)
--- NOTE | 2020-10-27 21:00 | NUR ---
Transferred to [facility] for dialysis. Remains on Levophed drip for BP support. fish hatchery inspector aware. Dialysis started.
--- NOTE | 2020-10-27 22:00 | NUR ---
Order received from Dr. Crowell for Neosynephrine drip. Patient is tachycardic while on Levophed and drip and during dialysis.
[2020-10-27] MEDS ORDERED: PHENYLEPHRINE 10 MG/1 ML VIAL ONE (23:05)
--- NOTE | 2020-10-27 23:10 | NUR ---
Dialysis completed. No fluids taken out as per rn peritoneal dialysis.
[2020-10-27] MEDS: PHENYLEPHRINE IV 50 MG in IV NORMAL SALINE 245 ML IV PRN (23:40)
[2020-10-28] VITALS (75 sets, daily range): BP systolic 65–154; BP diastolic 34–99
[2020-10-28] MEDS: BLOOD SUGAR DIAGNOSTIC 1 EACH STRIP VI SCH ×4 (00:05→18:00)
[2020-10-28] MEDS: PROPOFOL 100 ML IV PRN ×4 (03:39→21:36)
[2020-10-28 05:07] LABS: BASOPHILS # (AUTO) 0.1 K/uL (0.0-8.0); BASOPHILS % (AUTO) 0.5 % (0.0-2.0); EOSINOPHILS % (AUTO) 0.1 % (0.0-7.0); HEMATOCRIT 34.9 % (36.7-47.1); HEMOGLOBIN 11.5 g/dL (12.5-16.3); LYMPHOCYTES # (AUTO) 0.5 K/uL (20.0-40.0); LYMPHOCYTES % (AUTO) 2.2 % (20.5-51.5); MEAN CORPUSCULAR HEMOGLOBIN 29.3 uug (23.8-33.4); MEAN CORPUSCULAR HGB CONC 33 g/dL (32.5-36.3); MONOCYTES # (AUTO) 2.6 K/uL (2.0-10.0); MONOCYTES % (AUTO) 11.4 % (0.0-11.0); NEUTROPHILS # (AUTO) 19.3 K/uL (1.8-8.9); NEUTROPHILS % (AUTO) 85.8 % (38.5-71.5); PLATELET COUNT (AUTO) 163 K/uL (152-348); RED BLOOD CELL COUNT(AUTO) 3.93 MIL/uL (4.06-5.63); WHITE BLOOD COUNT (AUTO) 22.5 K/uL (3.6-10.2)
[2020-10-28 05:32] LABS: CARBON DIOXIDE 26 mmol/L (21-32); CHLORIDE 103 mmol/L (98-107); CREATININE 5.3 mg/dL (0.6-1.3); GLUCOSE 162 mg/dL (74-106); MAGNESIUM 2.9 mg/dL (1.8-2.4); PHOSPHOROUS 7.2 mg/dL (2.5-4.9); POTASSIUM 5.8 mmol/L (3.5-5.1)
[2020-10-28 05:41] LABS: UREA NITROGEN, BLOOD 104 mg/dL (7-18)
[2020-10-28] MEDS: MEROPENEM 500 MG in IV NORMAL SALINE 50 ML IV SCH ×2 (05:51→19:06)
--- NOTE | 2020-10-28 06:00 | NUR ---
Remains on Neosynephrine drip for BP support and same vent settings: AC=34, FIO2=70%, Peep=12 and AU=033 ml. Saturations above 94%.
[2020-10-28] MEDS: PIOGLITAZONE HCL 15 MG TABLET NG SCH (07:51)
[2020-10-28] MEDS: TAMSULOSIN HCL 0.4 MG CAP.SR.24H PO SCH (07:51)
[2020-10-28] MEDS: DEXAMETHASONE SOD PHOSPHATE 4 MG INJ IV SCH (07:51)
[2020-10-28 08:11] LABS: ABG BASE EXCESS -7.1 mmol/L; ABG HCO3 22.3 mmol/L; ABG PH 7.153 (7.350-7.450); ABG PO2 61.6 mmHg (75.0-100.0); ABG SITE RIGHT RADIAL; ABG TOTAL HEMOGLOBIN 11.7 G/dL (13.5-18.0); COHb 1.8 % (0.5-1.5); MetHb 0.2 % (0.0-1.5); O2Hb 87.8 % (94.0-97.0); VENT MODE VENT - A/C; VT, ABG 500 mL
[2020-10-28] MEDS: PHENYLEPHRINE IV 50 MG in IV NORMAL SALINE 245 ML IV PRN ×4 (08:16→20:07)
--- NOTE | 2020-10-28 10:30 | NUR ---
patient started on dialysis at this time. patient on neosynephrine for blood pressure support. will start levophed if needed with dialysis.
[2020-10-28] MEDS: NOREPINEPHRINE BITARTRATE 8 MG in IV NORMAL SALINE 242 ML IV PRN ×3 (11:31→20:11)
[2020-10-28] MEDS ORDERED: VANCOMYCIN IV 500 MG in IV DEXTROSE 5% 100 ML IV PRN (14:15)
--- NOTE | 2020-10-28 20:00 | NUR ---
RECEIVED PT ORALLY INTUBATED TO VENT W/ SETTINGS OF AC-34, TV-500, FIO2-80%, PEE[P-+12 W/ O2 SAT OF 99%. ON NEOSYNEPHRINE DRIP @ 3MCQ/KG/MIN VIA PICC LINE ON TARIQ.LEVOPHED @ 0.4 MCQ/KG/MIN . DIPRIVAN DRIP @ 50MCQ /KG/MIN. REPOSITIONED W/ HOB ELEVATED.
--- NOTE | 2020-10-28 22:00 | NUR ---
HS CARE DONE. ORAL CARE DONE..
--- NOTE | 2020-10-28 23:15 | NUR ---
INCREASED LEVOPHED DRIP BP 81/35.
[2020-10-29] VITALS: BP 109/59
--- NOTE | 2020-10-29 00:01 | NUR ---
INCREASED LEVOPHED DRIP BP STILL LOW.
[2020-10-29 00:15] VITALS: BP 0/0
--- NOTE | 2020-10-29 00:15 | NUR ---
NO BP, HR -65 IDEOVENTRICULAR RHYTM, CALLED FOR CODE BLUE.
[2020-10-29] MEDS ORDERED: NOREPINEPHRINE BITARTRATE 4 MG/4 ML VIAL IV ONE (00:26)
--- NOTE | 2020-10-29 00:27 | NUR ---
PRONOUNCED BY DR Shakira TINOCO MD.
--- NOTE | 2020-10-29 00:35 | NUR ---
CALLED & NOTIFIED GRANDDAUGHTER CIARAN. NOTIFIED Pawel WILKINSON..
--- NOTE | 2020-10-29 02:00 | NUR ---
post mortem care done.
--- NOTE | 2020-10-29 02:30 | NUR ---
PT. BODY TO MORGE.
[2020-10-29 08:08] LABS: HEPATITIS B SURFACE AB Reactive (.); HEPATITIS B SURFACE AG Negative (Negative)
== END 2020-10-29 00:27 | disposition expired | DRG 870 ==
LOC: ER 23:06 → TRANSITION 10-19 02:35 → UNDOADMIN 10-20 02:40 → TRANSITION 10-20 02:40 → CCU 10-20 22:43 → TRANSITION 10-20 22:43 → CCU 10-25 10:32
PROVIDERS: ADMIT Student in an Organized Health Care Education/Training Program; ATTEND Nurse Practitioner Acute Care
PROC: XW043E5 Introduction of Remdesivir Anti-infective into Central Vein, Percutaneous Approach, New Technology Group 5 (ICD-10-PCS; 2020-10-19)
PROC: 5A1935Z Respiratory Ventilation, Less than 24 Consecutive Hours (ICD-10-PCS; 2020-10-20)
PROC: 05HY33Z Insertion of Infusion Device into Upper Vein, Percutaneous Approach (ICD-10-PCS; 2020-10-20)
PROC: XW033E5 Introduction of Remdesivir Anti-infective into Peripheral Vein, Percutaneous Approach, New Technology Group 5 (ICD-10-PCS; 2020-10-20)
PROC: 5A1955Z Respiratory Ventilation, Greater than 96 Consecutive Hours (ICD-10-PCS; principal; 2020-10-22)
PROC: 0BH17EZ Insertion of Endotracheal Airway into Trachea, Via Natural or Artificial Opening (ICD-10-PCS; 2020-10-22)
PROC: XW14325 Transfusion of Convalescent Plasma (Nonautologous) into Central Vein, Percutaneous Approach, New Technology Group 5 (ICD-10-PCS; 2020-10-22)
PROC: 06HY33Z Insertion of Infusion Device into Lower Vein, Percutaneous Approach (ICD-10-PCS; 2020-10-27)
PROC: 5A1D70Z Performance of Urinary Filtration, Intermittent, Less than 6 Hours Per Day (ICD-10-PCS; 2020-10-27)
PROC: 5A1D70Z Performance of Urinary Filtration, Intermittent, Less than 6 Hours Per Day (ICD-10-PCS; 2020-10-28)
DX: A41.89 Other specified sepsis (principal); U07.1 COVID-19; J12.89 Other viral pneumonia; J96.01 Acute respiratory failure with hypoxia; G93.41 Metabolic encephalopathy; N17.0 Acute kidney failure with tubular necrosis; R65.21 Severe sepsis with septic shock; E44.0 Moderate protein-calorie malnutrition; E87.4 Mixed disorder of acid-base balance; J90 Pleural effusion, not elsewhere classified; N39.0 Urinary tract infection, site not specified; D64.9 Anemia, unspecified; D69.6 Thrombocytopenia, unspecified; E11.9 Type 2 diabetes mellitus without complications; E78.5 Hyperlipidemia, unspecified; E86.0 Dehydration; E87.5 Hyperkalemia; I70.0 Atherosclerosis of aorta; B96.89 Other specified bacterial agents as the cause of diseases classified elsewhere; N40.0 Benign prostatic hyperplasia without lower urinary tract symptoms; Z79.84 Long term (current) use of oral hypoglycemic drugs; Z78.1 Physical restraint status; I95.9 Hypotension, unspecified
CPT/HCPCS: 36415; 36600; 70030-TC; 71045; 74018; 83605; 83615; 83735; 84100; 85025; 85610; 85730; 86140; 86706; 86850; 86900; 86901; 87040; 87070; 87086; 87340; 87400; 90937; 93005; 94002; 94003; 94640; 94660; A4663; G0378; J0456; J0696; J1100; J1650; J1815; J1940; J2060; J2185; J2270; J2370; J3370; J3480; J3490; J3590; J7030; J7050; J7060; P9016-BL; P9017-BL; U0003